=== PATIENT | male | born 1950 | race African-American/Black ===

== ENCOUNTER 2017-03-06 05:52 | Day surgery (SDC) | payer MEDICARE, OTHER ==
--- NOTE | ~2017-03-06 | EGD ---
EGD REPORT [facility] [address] [place] [address] NAME: ELENA MATT : [birth year] STATUS : [place] [facility] [place]#: [id number] AGE: 67 ADM/REG DATE : 03/06/17 MR#: [id number] REPORT SERV DATE: 03/06/17 DICTATED BY: MARK VÁZQUEZ DATE: 03/06/17 REPORT STATUS : Draft TRANSCRIBED BY: [employer] DATE: 03/06/17 [facility] Patient Name: Elena Matt Date of : 1950 Attending MD: TRAN VÁZQUEZ MD Procedure Date No Time: 03/06/2017 Procedure: Colonoscopy Indications: Screening for colorectal malignant neoplasm, This is the patient's first colonoscopy Referring MD: SERVANDO BOWENS III Medicines: See the Anesthesia note for documentation of the administered medications Complications: No immediate complications. Estimated blood loss: None. Procedure: Pre-Anesthesia Assessment: - ASA Grade Assessment: III - A patient with severe systemic disease. - Prior to the procedure, a History and Physical was performed, and patient medications and allergies were reviewed. The patient's tolerance of previous anesthesia was also reviewed. The risks and benefits of the procedure and the sedation options and risks were discussed with the patient. All questions were answered, and informed consent was obtained. Prior Anticoagulants: The patient has taken aspirin, last dose was 1 day prior to procedure. After reviewing the risks and benefits, the patient was deemed in satisfactory condition to undergo the procedure. After I obtained informed consent, the scope was passed under direct vision. Throughout the procedure, the patient's blood pressure, pulse, and oxygen saturations were monitored continuously. The PCF [id number] was introduced through the anus and advanced to the terminal ileum. The ileocecal valve, appendiceal orifice, terminal ileum and rectum were photographed. The entire colon was examined. The colonoscopy was performed without difficulty. The patient tolerated the procedure well. The quality of the bowel preparation was adequate. Findings: The perianal and digital rectal examinations were normal. The terminal ileum appeared normal. A sessile polyp was found in the distal transverse colon. The polyp was 3 mm in size. The polyp was removed with a cold snare. Resection and retrieval were complete. A sessile polyp was found in the proximal ascending colon. The polyp was EGD REPORT [place] [id number] [facility] [place]. [address] NAME: ELENA MATT : [birth year] STATUS : REG [facility]#: [id number] AGE: 67 ADM/REG DATE : 03/06/17 MR#: [id number] REPORT SERV DATE: 03/06/17 DICTATED BY: MARK VÁZQUEZ DATE: 03/06/17 REPORT STATUS : Draft TRANSCRIBED BY: [facility] DATE: 03/06/17 4 mm in size. The polyp was removed with a cold snare. Resection and retrieval were complete. A sessile polyp was found in the rectum. The polyp was 20 mm in size. The polyp was removed with a hot snare. Resection and retrieval were complete. Many medium-mouthed diverticula were found in the sigmoid colon and in the descending colon. Non-bleeding internal hemorrhoids were found during retroflexion and were Grade I (internal hemorrhoids that do not prolapse). No other significant abnormalities were identified in a careful examination of the remainder of the colon. Impression: - The examined portion of the ileum was normal. - One 3 mm polyp in the distal transverse colon. Resected and retrieved. - One 4 mm polyp in the proximal ascending colon. Resected and retrieved. - One 20 mm polyp in the rectum. Resected and retrieved. - Diverticulosis in the sigmoid colon and in the descending colon. - Non-bleeding internal hemorrhoids. Recommendation: - Patient has a contact number available for emergencies. The signs and symptoms of potential delayed complications were discussed with the patient. Return to normal activities tomorrow. Written discharge instructions were provided to the patient. - High fiber diet indefinitely. - Discharge patient to home. - Continue present medications. - Await pathology results. - Repeat colonoscopy for surveillance based on pathology results. Procedure Code(s): --- Professional --- 67253, Colonoscopy, flexible, proximal to splenic flexure; with removal of tumor(s), polyp(s), or other lesion(s) by snare technique Diagnosis Code(s): --- Professional --- K64.0, First degree hemorrhoids K57.30, Diverticulosis of large intestine without perforation or abscess without bleeding K62.1, Rectal polyp D12.2, Benign neoplasm of ascending colon D12.3, Benign neoplasm of transverse colon Z12.11, Encounter for screening for malignant neoplasm EGD REPORT [facility] [address] [address] NAME: ELENA MATT : [birth year] STATUS : [place] [facility] PAT#: [id number] AGE: 67 ADM/REG DATE : 03/06/17 MR#: [id number] REPORT SERV DATE: 03/06/17 DICTATED BY: MARK VÁZQUEZ DATE: 03/06/17 REPORT STATUS : Draft TRANSCRIBED BY: [employer] DATE: 03/06/17 of colon CPT copyright 2013 [employer]. All rights reserved. The codes documented in this report are preliminary and upon torpedo worker review may be revised to meet current compliance requirements. TRAN VÁZQUEZ MD 03/06/2017 8:02 AM This report has been signed electronically. Number of Addenda: 0 Note Initiated On: 03/06/2017 7:29 AM Scope Withdrawal Time 0 hours 12 minutes 16 seconds [address] [address]
[~2017-03-06 05:52] MED LIST: ASAB PO; ATV.5 PO; BACDS PO; CELEBREX2 PO; COREG3 PO; COREG6 PO; COZ50 PO; CRESTOR40 MG PO; CYMBALTA60 PO; HYZAAR 100/25 T1 TAB PO; HYZAAR 50/12.51 TAB PO; KLONO5 PO; KLOR-CON M2020 MEQ PO; LEVOTHROID25 MCG PO; LIPITOR20 PO; LIPITOR40 PO; NEUR400 PO; NORV10 PO; NORV5 PO; PROVIGIL2 PO; WELLXL150 PO
== END 2017-03-06 23:59 | disposition home health service (06) ==
LOC: DMU 05:52
PROVIDERS: Internal Medicine Gastroenterology
PROC: 0DBP8ZZ Excision of Rectum, Via Natural or Artificial Opening Endoscopic (ICD-10-PCS; 2017-03-06)
PROC: 0DBK8ZZ Excision of Ascending Colon, Via Natural or Artificial Opening Endoscopic (ICD-10-PCS; 2017-03-06)
PROC: 0DBL8ZZ Excision of Transverse Colon, Via Natural or Artificial Opening Endoscopic (ICD-10-PCS; principal; 2017-03-06 07:30)
DX: Z12.11 Encounter for screening for malignant neoplasm of colon (principal); D12.3 Benign neoplasm of transverse colon; D12.2 Benign neoplasm of ascending colon; D12.8 Benign neoplasm of rectum; K64.0 First degree hemorrhoids; K57.30 Diverticulosis of large intestine without perforation or abscess without bleeding; I10 Essential (primary) hypertension; I25.2 Old myocardial infarction; I25.10 Atherosclerotic heart disease of native coronary artery without angina pectoris; E78.00 Pure hypercholesterolemia, unspecified; F41.9 Anxiety disorder, unspecified; M19.90 Unspecified osteoarthritis, unspecified site; E03.9 Hypothyroidism, unspecified; G47.33 Obstructive sleep apnea (adult) (pediatric); Z99.89 Dependence on other enabling machines and devices; Z79.899 Other long term (current) drug therapy; Z98.890 Other specified postprocedural states
CPT/HCPCS: 88305